=== PATIENT | female | born 1950 | race Caucasian/White ===

== ENCOUNTER 2022-05-06 16:33 | Observation (INO) ==
[2022-05-06 18:32] LABS: ABS Eosinophils 0.1 10^3/ul (0-0.6); ABS Lymphocytes 1.1 10^3/ul (1.0-4.8); ABS Monocytes 0.6 10^3/ul (0-0.8); ABS Neutrophils 2.9 10^3/ul (1.5-7.7); Hematocrit 39 % (35-47); Hemoglobin 12.7 g/dL (12.0-16.0); Lymphocyte % 24.1 %; Mean Corpuscular HGB Conc 33 g/dL (31-36); Mean Corpuscular Hemoglobin 30 pg (27-31); Mean Corpuscular Volume 91 fL (80-97); Mean Platelet Volume 8.1 fL (7.4-10.4); Nucleated Red Blood Cells % 0.1; Platelet Count 168 10^3/uL (150-450); Red Blood Count 4.32 10^6 /uL (3.70-4.87); Red Cell Distribution Width 13 % (10-15); White Blood Count 4.8 10^3/uL (3.5-10.8)
[2022-05-06 19:20] LABS: Albumin 3.8 g/dL (3.2-5.2); Albumin/Globulin Ratio 1.9 (1-3); C Reactive Protein 2.11 mg/L (<8.01); Calcium 9.1 mg/dL (8.6-10.3); Total Bilirubin 0.3 mg/dL (0.2-1.0); Total Protein 5.8 g/dL (6.4-8.9); eGFR CKD-EPI 71.2 (>60)
[2022-05-06 19:39] LABS: Erythrocyte Sed Rate 5 mm/Hr (0-29)
[2022-05-06] MEDS ORDERED: Iohexol 350 (CONTRAST) 500 ML MDV IV ONE (20:12)
[2022-05-06] MEDS ORDERED: Enoxaparin 40 MG/0.4 ML SYR SUBCUT SCH (22:00)
[2022-05-06 23:07] LABS: TSH Ultra Thyroid Stim Horm 0.09 mcIU/mL (0.34-5.60)
[2022-05-06 23:09] LABS: Free T4 1.2 ng/dL (0.61-1.12)
[2022-05-07] MEDS ORDERED: Polyethylene Glycol 3350 17 GM PACKET PO SCH (09:00)
[2022-05-07 15:48] VITALS: BP 139/77
== END 2022-05-07 16:10 | disposition home or self-care (01) ==
LOC: ED 16:33 → EDHOLD 16:33 → SUATTDRO 21:56 → EDHOLD 05-07 01:31 → SSU 05-07 02:33
PROVIDERS: ADMIT Internal Medicine; ATTEND Internal Medicine

== ENCOUNTER 2024-11-14 01:17 | Inpatient (IN) ==
[2024-11-14 02:10] LABS: ABS Eosinophils 0.1 10^3/uL (0.0-0.5); ABS Lymphocytes 0.8 10^3/uL (1.0-4.8); ABS Monocytes 0.5 10^3/uL (0.0-0.9); ABS Neutrophils 4.7 10^3/uL (1.5-7.6); Eosinophil % 2.2 %; Hematocrit 40.1 % (35-45); Hemoglobin 13.3 g/dL (11.5-14.3); Lymphocyte % 13.5 %; Mean Corpuscular Hemoglobin 30.7 pg (27-33); Mean Corpuscular Hgb Conc 33.1 g/dL (31-36); Mean Corpuscular Volume 92.8 fL (80-97); Mean Platelet Volume 8.9 fL (7.5-11.2); Platelet Count 141 10^3/uL (150-450); Red Blood Count 4.33 10^6/uL (3.63-4.92); Red Cell Distribution Width 13.3 % (12-17); White Blood Count 6.2 10^3/uL (3.8-11.8)
[2024-11-14 02:33] LABS: High Sens Troponin Baseline < 3 pg/mL (<15)
[2024-11-14 03:04] LABS: ALT 26 U/L (7-52); Albumin/Globulin Ratio 1.9 (1-3); Alkaline Phosphatase 92 U/L (35-149); Anion Gap 9 mmol/L (2-16); Blood Urea Nitrogen 16 mg/dL (6-24); CO2 Carbon Dioxide 30 mmol/L (22-32); Calcium 8.6 mg/dL (8.6-10.3); Chloride 105 mmol/L (101-111); Creatinine, Serum 1.05 mg/dL (0.51-0.95); Globulin 2.1 g/dL (2-4); Glucose 215 mg/dL (70-100); Lipase 29 U/L (11.0-82.0); Sodium 144 mmol/L (135-145); Total Bilirubin 0.6 mg/dL (0.2-1.0); Total Protein 6.1 g/dL (6.4-8.9); eGFR CKD-EPI 55.8 (>60)
[2024-11-14 03:09] LABS: Free T4 0.92 ng/dL (0.61-1.12)
[2024-11-14 03:36] LABS: TSH Ultra Thyroid Stim Horm 17.01 mcIU/mL (0.34-5.60)
[2024-11-14 03:39] LABS: High Sensitivity Troponin 1 Hr < 3 pg/mL (<15)
[2024-11-14] MEDS: Iodixanol 320 (CONTRAST) 100 ML SDV IV ONE (05:43)
[2024-11-14] MEDS: Morphine 4 MG/ML VIAL (1 ml) IV ONE (06:07)
[2024-11-14 06:18] LABS: Potassium Redraw 4.5 mmol/L (3.5-5.0)
[2024-11-14] MEDS: Lactated Ringers 1000 ml BAG 1,000 ML IV SCH ×2 (11:11→22:35)
[2024-11-14] MEDS: Morphine 2 MG/ML SYRINGE IV PRN (12:37)
[2024-11-14] MEDS ORDERED: Naloxone 0.4 mg VIAL 0.4 mg/ml 1 ml VIAL IV PRN (14:24)
[2024-11-14] MEDS ORDERED: Ondansetron 4 mg VIAL 2 MG/ML 2 ml VIAL IV PRN ×2 (14:24→22:33)
[2024-11-14] MEDS ORDERED: fentaNYL 100 mcg/2 ml 50 MCG/ML VIAL IV PRN (14:24)
[2024-11-14] MEDS ORDERED: NS 0.45% 1000 ml BAG 1,000 ML IV SCH (15:00)
[2024-11-14] MEDS: Acetaminophen IV 1 GM/100ML 1,000 MG/100 ML BAG IV PRN (16:58)
[2024-11-14] MEDS ORDERED: Propofol 10 MG/ML 20 ML BTL ONE ×2 (19:02→19:28)
[2024-11-14] MEDS ORDERED: Lidocaine 2% PF 5 ML VIAL ONE (19:02)
[2024-11-14] MEDS ORDERED: Midazolam 2 mg/2 ml VIAL 1 mg/ml 2 ml VIAL (2 mg) ONE (19:04)
[2024-11-14] MEDS ORDERED: fentaNYL 100 mcg/2 ml 50 MCG/ML VIAL ONE (19:04)
[2024-11-14] MEDS ORDERED: Rocuronium 50 mg VIAL 10 mg/ml 5 ml VIAL (50 mg) ONE ×2 (19:06→20:48)
[2024-11-14] MEDS ORDERED: Succinylcholine 200 mg VIAL 20 mg/ml 10 ml VIAL (200 mg) ONE (19:13)
[2024-11-14] MEDS ORDERED: Bupivacaine 0.25% SDV 30 ML ONE (19:47)
[2024-11-14] MEDS ORDERED: Ondansetron 4 mg VIAL 2 MG/ML 2 ml VIAL ONE (20:35)
[2024-11-14] MEDS ORDERED: Dexamethasone IV 4 MG/ML VIAL 1 ml VIAL ONE (20:35)
[2024-11-14] MEDS ORDERED: HYDROmorphone 0.5 MG/0.5 ML SYRINGE ONE (20:49)
[2024-11-14] MEDS ORDERED: Naloxone 4 mg VIAL 0.4 MG/ML 10 ml VIAL (4 mg) ONE (21:57)
[2024-11-14] MEDS ORDERED: Calcium Carb (TUMS) 500 mg CHEW TAB PO PRN (22:33)
[2024-11-14] MEDS ORDERED: Metoclopramide 5 MG/ML VIAL (10 mg) IV PRN (22:33)
[2024-11-14] MEDS: Acetaminophen IV 1 GM/100ML 1,000 MG/100 ML BAG IV ONE (22:35)
[2024-11-14] MEDS: Buffered Lidocaine 1% SYRIN 1 ml INTRADERM ONE (22:35)
[2024-11-15] MEDS: Morphine 2 MG/ML SYRINGE IV PRN (08:32)
[2024-11-15] MEDS: Enoxaparin 40 MG/0.4 ML SYR SUBCUT SCH (10:17)
[2024-11-17] MEDS ORDERED: Polyethylene Glycol 3350 17 GM PACKET PO PRN (11:01)
[2024-11-17 12:24] LABS: Hematocrit 38.3 % (35-45); Hemoglobin 12.6 g/dL (11.5-14.3); Mean Corpuscular Hemoglobin 30.7 pg (27-33); Mean Corpuscular Volume 92.9 fL (80-97); Red Blood Count 4.12 10^6/uL (3.63-4.92); Red Cell Distribution Width 13.6 % (12-17); White Blood Count 6.9 10^3/uL (3.8-11.8)
[2024-11-17 12:44] LABS: Calcium 8.4 mg/dL (8.6-10.3); Creatinine, Serum 0.88 mg/dL (0.51-0.95); Magnesium 1.7 mg/dL (1.9-2.7); Potassium 4.4 mmol/L (3.5-5.0); eGFR CKD-EPI 68.9 (>60)
[2024-11-17 13:20] LABS: ABS Eosinophils 0.2 10^3/uL (0.0-0.5); ABS Monocytes 0.6 10^3/uL (0.0-0.9); ABS Neutrophils 5.1 10^3/uL (1.5-7.6); Eosinophil % 3.5 %; Lymphocyte % 14.1 %; Nucleated Red Blood Cells % 0.1 %/100WBC (0.0-0.8)
[2024-11-17] MEDS: Magnesium Sulfate 2 gm BAG 2 GM/50 ML BAG IVPB ONE (18:05)
[2024-11-18 14:04] VITALS: BP 130/83
== END 2024-11-18 14:22 | disposition home or self-care (01) | DRG 358 ==
LOC: EDHOLD 01:17 → ED 01:17 → SSU 17:23
PROVIDERS: ADMIT Surgery; ATTEND Surgery